=== PATIENT | male | born 1955 | race American Indian/Alaskan Native ===

== ENCOUNTER 2018-03-10 21:22 | Emergency (ER) | payer SELFPAY ==
[2018-03-10 21:55] VITALS: BMI 22.7
--- NOTE | 2018-03-10 23:41 | ED PDOC ---
Arrival/HPI - General Chief Complaint: Alcohol Ingestion Time Seen by Provider: 03/10/18 21:45 Historian: Patient, EMS EM Caveat: Intoxicated, Uncooperative - History of Present Illness Narrative History of Present Illness (Text): 03/10/18 22:10 62 year old male, whose past medical history include alcohol abuse, presents to the emergency department via [facility] [place], [place], for public alcohol intoxication. As per EMT , patient was at [facility] on [address] and was found "acting out". While patient was in the ambulance patient became combative and "started swinging". Upon arrival to ER, patient was poorly cooperative and combative to ER staff. At one point, patient required restrained and sedated. HPI and ROS limited due to patient's uncooperative and alcohol intoxicated state. Time/Duration: Prior to Arrival Symptom Onset: Gradual Symptom Course: Unchanged Context: Street Past Medical History - Provider Review Nursing Documentation Reviewed: Yes - Infectious Disease Hx of Infectious Diseases: None - Tetanus Immunization Tetanus Immunization: Up to Date - Past Medical History Past Medical History: No Previous - Psychiatric Hx Depression: No Hx Substance Use: No - Past Surgical History Past Surgical History: No Previous - Anesthesia Hx Anesthesia: No - Suicidal Assessment Feels Threatened In Home Enviroment: No Family/Social History - Physician Review Nursing Documentation Reviewed: Yes Family/Social History: No Known Family HX Smoking Status: Never Smoked Hx Alcohol Use: Yes Hx Substance Use: No Hx Substance Use Treatment: No Allergies/Home Meds Allergies/Adverse Reactions: Allergies No Known Allergies Allergy (Verified 07/08/13 12:08) Review of Systems - Physician Review All systems were reviewed & negative as marked: Yes - Review of Systems Systems not reviewed;Unavailable: Uncooperative Physical Exam Vital Signs Reviewed: Yes Vital Signs Pulse Resp BP Pulse Ox 03/11/18 03:16 87 16 107/67 98 03/11/18 01:00 87 16 110/72 99 03/10/18 23:26 90 16 117/70 95 03/10/18 21:22 105 H 18 159/59 H 100 Temperature: Afebrile Blood Pressure: Hypertensive Pulse: Regular Respiratory Rate: Normal Appearance: Positive for: Well-Appearing, Non-Toxic, Comfortable Pain Distress: None Mental Status: Positive for: Alert and Oriented X 3 - Systems Exam Head: Present: Atraumatic, Normocephalic Pupils: Present: PERRL Extroacular Muscles: Present: EOMI Conjunctiva: Present: Normal Mouth: Present: Moist Mucous Membranes, Other (Alcohol on breath) Neck: Present: Normal Range of Motion Respiratory/Chest: Present: Clear to Auscultation, Good Air Exchange. No: Respiratory Distress, Accessory Muscle Use Cardiovascular: Present: Regular Rate and Rhythm, Normal S1, S2. No: Murmurs Abdomen: No: Tenderness, Distention, Peritoneal Signs Back: Present: Normal Inspection Upper Extremity: Present: Normal Inspection. No: Cyanosis, Edema Lower Extremity: Present: Normal Inspection. No: Edema Neurological: Present: GCS=15, CN II-XII Intact, Speech Normal Skin: Present: Warm, Dry, Normal Color. No: Rashes Psychiatric: Present: Alert, Oriented x 3, Normal Insight, Normal Concentration Medical Decision Making ED Course and Treatment: 03/10/18 20:10 Impression: 62 year old male presents for public intoxication. Patient presents combative and uncooperative. Code miranda was called. Plan: -- Labs -- Ativan, Haldol -- Reassess and disposition Progress Notes: Patient upon arrival to ER was combative to Emergency department staff. Patient was restrained and sedated for the safety of the patient and the ER staff. 03/11/18 06:01 Pt. awake,alert,sober with steady gait. - Lab Interpretations Lab Results: 03/11/18 00:10 03/11/18 00:10 Lab Results 03/11/18 00:10: Sodium 145, Potassium 3.9, Chloride 108 H, Carbon Dioxide 26, Anion Gap 15, BUN 17, Creatinine 1.1, Est GFR ( Amer) > 60, Est GFR (Non- Af Amer) > 60, Random Glucose 80, Calcium 8.9 03/11/18 00:10: WBC 6.4, RBC 3.75, Hgb 11.8 L, Hct 35.4 L, MCV 94.4, MCH 31.5, MCHC 33.3, RDW 12.8, Plt Count 248, MPV 10.6 03/11/18 00:10: Alcohol, Quantitative 198 H I have reviewed the lab results: Yes - Medication Orders Current Medication Orders: Discontinued Medications Haloperidol Lactate (Haldol) 5 mg IM STAT STA PRN Reason: Protocol Stop: 03/10/18 21:49 Last Admin: 03/10/18 21:55 Dose: 5 mg IM Administration Charges Document 03/10/18 21:55 MS (Rec: 03/10/18 23:55 MS [id number]) Injection Site MAR Injection Site Left Deltoid Charges for Administration # of IM Administrations 1 Lorazepam (Ativan) 2 mg IM ONCE ONE Stop: 03/10/18 21:47 Last Admin: 03/10/18 21:55 Dose: 2 mg IM Administration Charges Document 03/10/18 21:55 MS (Rec: 03/10/18 23:55 MS [id number]) Injection Site MAR Injection Site Left Deltoid Charges for Administration # of IM Administrations 1 - Scribe Statement The provider has reviewed the documentation as recorded by the Felix Lane Provider Scribe Attestation: All medical record entries made by the Scribe were at my direction and personally dictated by me. I have reviewed the chart and agree that the record accurately reflects my personal performance of the history, physical exam, medical decision making, and the department course for this patient. I have also personally directed, reviewed, and agree with the discharge instructions and disposition. Disposition/Present on Arrival - Present on Arrival Any Indicators Present on Arrival: No History of DVT/PE: No History of Uncontrolled Diabetes: No Urinary Catheter: No History of Decub. Ulcer: No History Surgical Site Infection Following: None - Disposition Have Diagnosis and Disposition been Completed?: Yes Diagnosis: Alcohol abuse with intoxication Disposition: HOME/ ROUTINE Disposition Time: 06:00 Patient Plan: Discharge Patient Problems: Current Active Problems Problem Status Onset Alcohol abuse with intoxication Acute Condition: GOOD Referrals: Alice Kothari, [Primary Care Provider] - Follow up with primary Alcoholics Anonymous [Outside] - Follow up with primary Forms: [employer] (Kiswahili)
[2018-03-11 00:48] LABS: BLOOD UREA NITROGEN 17 mg/dL (7-21); CALCIUM 8.9 mg/dL (8.4-10.5); GFR AFRICAN-AMERICAN > 60; GFR NON-AFRICAN AMERICAN > 60
[2018-03-11 00:54] LABS: HEMOGLOBIN 11.8 g/dL (14.0-18.0); MEAN CELL VOLUME 94.4 fl (80.0-105.0); MEAN CORPUSCULAR HEMOGLOBIN 31.5 pg (25.0-35.0); MEAN CORPUSCULAR HGB CONC 33.3 g/dl (31.0-37.0); MEAN PLATELET VOLUME 10.6 fl (7.0-11.0); RBC 3.75 10^6/uL (3.5-6.1); RED CELL DISTRIBUTION WIDTH 12.8 % (11.5-14.5); WHITE BLOOD COUNT 6.4 10^3/ul (4.5-11.0)
[2018-03-11 07:13] VITALS: BP 115/72; PULSE 92; RESP 17; TEMP 98.2; O2SAT 98
== END 2018-03-11 07:14 | disposition home or self-care (01) ==
LOC: ED 21:22
DX: F10.129 Alcohol abuse with intoxication, unspecified (principal)
CPT/HCPCS: 80048; 85027; 96372; 99285; G0480; J1630; J2060